=== PATIENT | female | born 2000 | race Caucasian/White ===

== ENCOUNTER → 2018-10-22 | Emergency (ER) | payer OTHER | END | disposition left against medical advice (07) | LOC: ER 21:44 | DX: Z53.20 Procedure and treatment not carried out because of patient's decision for unspecified reasons (principal) ==

== ENCOUNTER 2021-03-05 13:36 | Outpatient (CLI) | payer OTHER ==
[2021-03-05] MEDS ORDERED: PRENATAL TABLE1 EAC1 PO (14:34)
== END 2021-03-05 21:45 | disposition home or self-care (01) ==
LOC: OBS/DEL 13:36
PROVIDERS: ATTEND Obstetrics & Gynecology
DX: O60.02 Preterm labor without delivery, second trimester (principal); O26.842 Uterine size-date discrepancy, second trimester; O26.852 Spotting complicating pregnancy, second trimester; Z3A.27 27 weeks gestation of pregnancy

== ENCOUNTER 2021-03-23 06:06 | Outpatient (CLI) | payer OTHER ==
[~2021-03-23 06:06] MED LIST: PRENATAL TABLE1 EAC1 PO
== END 2021-03-24 17:10 | disposition home or self-care (01) ==
LOC: OBS/DEL 06:06
PROVIDERS: ATTEND Obstetrics & Gynecology
DX: O99.893 Other specified diseases and conditions complicating puerperium (principal); N13.2 Hydronephrosis with renal and ureteral calculous obstruction; Z3A.29 29 weeks gestation of pregnancy

== ENCOUNTER 2021-04-06 01:23 | Inpatient (IN) | payer OTHER ==
[~2021-04-06] VITALS: Ht 162.6 cm; Wt 68.9 kg
[2021-04-06] MEDS ORDERED: PRENATAL CAPLE1 EAC1 PO (13:41)
== END 2021-04-16 19:00 | disposition home or self-care (01) | DRG 832 ==
LOC: OBS/DEL 01:23 → OB/GYN 09:16 → LDR 09:16 → OB/GYN 04-07 09:34
PROVIDERS: ADMIT Obstetrics & Gynecology; ATTEND Obstetrics & Gynecology
PROC: BT04ZZZ Plain Radiography of Kidneys, Ureters and Bladder (ICD-10-PCS; principal; 2021-04-06)
PROC: BU46ZZZ Ultrasonography of Uterus (ICD-10-PCS; 2021-04-06)
PROC: BY4FZZZ Ultrasonography of Third Trimester, Single Fetus (ICD-10-PCS; 2021-04-06)
PROC: BT04ZZZ Plain Radiography of Kidneys, Ureters and Bladder (ICD-10-PCS; 2021-04-10)
DX: O23.03 Infections of kidney in pregnancy, third trimester (principal); N13.30 Unspecified hydronephrosis; N10 Acute pyelonephritis; O99.113 Other diseases of the blood and blood-forming organs and certain disorders involving the immune mechanism complicating pregnancy, third trimester; D69.59 Other secondary thrombocytopenia; N20.0 Calculus of kidney; O99.891 Other specified diseases and conditions complicating pregnancy; Z3A.31 31 weeks gestation of pregnancy; A49.3 Mycoplasma infection, unspecified site; O99.013 Anemia complicating pregnancy, third trimester; D64.9 Anemia, unspecified

== ENCOUNTER 2021-06-03 11:37 | Inpatient (IN) | payer OTHER ==
[~2021-06-03] VITALS: Ht 162.6 cm; Wt 2.7 kg
[~2021-06-03 11:37] MED LIST changes: +PRENATAL CAPLE1 EAC1 PO
== END 2021-06-06 15:13 | disposition home or self-care (01) | DRG 788 ==
LOC: OB/GYN 11:37 → LDR 11:37 → OB/GYN 14:19
PROVIDERS: ADMIT Obstetrics & Gynecology; ATTEND Obstetrics & Gynecology
PROC: 10907ZC Drainage of Amniotic Fluid, Therapeutic from Products of Conception, Via Natural or Artificial Opening (ICD-10-PCS; 2021-06-03)
PROC: 4A1HXFZ Monitoring of Products of Conception, Cardiac Rhythm, External Approach (ICD-10-PCS; 2021-06-03)
PROC: 10D00Z1 Extraction of Products of Conception, Low, Open Approach (ICD-10-PCS; principal; 2021-06-03 12:00)
DX: O77.0 Labor and delivery complicated by meconium in amniotic fluid (principal); O76 Abnormality in fetal heart rate and rhythm complicating labor and delivery; Z3A.39 39 weeks gestation of pregnancy; Z37.0 Single live birth